=== PATIENT | female | born 1960 | race Caucasian/White ===

== ENCOUNTER 2020-06-23 01:39 | Emergency (ER) | payer OTHER, SELFPAY ==
[2020-06-23 01:45] VITALS: BP 169/79; PULSE 82; RESP 20; TEMP 36.4; O2SAT 96
--- NOTE | 2020-06-23 02:32 | ED.PSYCH ---
HPI - Psych General Chief Complaint: Psychiatric Symptoms Stated Complaint: mental health Time Seen by Provider: 06/23/20 01:57 Source: patient Mode of arrival: Ambulatory Limitations: no limitations History of Present Illness HPI Narrative: Patient is a 60-year-old female who presents with anxiety and paranoia. She actually was hospitalized 2 years ago for 10 days at the [facility] for severe paranoia thinking that someone was after her. She states that since the fall she has had some severe paranoia again. She stopped talking to friends she really felt like somebody named Scott was after her. She wrote herself an e-mail ?turning herself in she could not quite explain what this meant but she referred to it frequently. She says the last 2 weeks have been a little bit worse. [place] she says she was finally able to move and leave the house and came to the ER for help. She states that over the past few weeks she actually has been cleaning her house playing [facility] she showers daily she eats food. She has not been to the grocery store in weeks put her freezer is filled with [employer] food and she has many blessing jar is of food that she has been eating. Her brother is coming into town shortly she and her brother are clothes he knows about her history. She really would like to be started on antipsychotic and medication I have explained to her that this is not going happen in the emergency department. She [place] reached out to friends who she has not done so in long time. She feels like she cycles and may be bipolar. She was previously feeling is suicidal in the fall but has not had any suicidal ideations for some time. She denies any auditory or visual hallucinations. Onset (ago): month(s) Duration: constant History of same: Yes Related Data Allergies Allergy/AdvReac Type Severity Reaction Status Date / Time No Known Drug Allergies Allergy Verified 06/23/20 03:36 Review of Systems Review of Systems Narrative: GENERAL: Denies chills,fever HEENT: Denies throat pain RESPIRATORY: Denies dyspnea, cough, wheezing CARDIOVASCULAR: Denies chest pain, palpitations GASTROINTESTINAL: Denies nausea, vomiting MUSCULOSKELETAL: Denies extremity pain, injury SKIN: No rash, no laceration, no pruritus NEUROLOGIC: Denies weakness, dizziness, headache, numbness 8 point review of systems is negative except for those stated above and HPI Psychiatric Psychiatric: Reports as per HPI Patient History Social History Smoking Status: Never smoker Smoking Status: Never smoker Substance Use Type: does not use Exam Initial Vital Signs Initial Vital Signs: Vital Signs Temperature 97.6 F 06/23/20 01:45 Pulse Rate 82 06/23/20 01:45 Respiratory Rate 20 06/23/20 01:45 Blood Pressure 169/79 H 06/23/20 01:45 Pulse Oximetry 96 06/23/20 01:45 GENERAL: Well-appearing, well-nourished and in no acute distress. CARDIOVASCULAR: peripheral pulses in tact, cap refill <2 sec RESPIRATORY: No respiratory distress, speaks in full sentences without difficulty EXTREMITIES: Normal range of motion, no clubbing or edema. Neurovascularly intact NEUROLOGICAL: Cranial nerves II through XII grossly intact. Normal gait and speech. SKIN: Warm, dry, no petechiae, no rashes or lesions. Course Vital Signs Vital signs: Vital Signs - 8 hr 06/23/20 01:45 Temperature 97.6 F Pulse Rate 82 Respiratory Rate 20 Blood Pressure 169/79 H Pulse Oximetry 96 MDM - Psych MDM Narrative Medical decision making narrative: The patient does seem to be quite paranoid that somebody is after her. It was previously quite paralyzing. She now seems to actually be improving. She was able to call friends this evening she has been able to do daily living activities over the past few weeks she is eating and bathing herself. She does seem to have insight into her fear anxiety and paranoia. At this time she does not meet involuntary criteria. I discussed with her possible voluntary hospitalization which she declines at this time social work consult was offered as well. However she would like to go home she feels like she is able to reach out now she feels like her cycle is broken. She was able to come here tonight and she does not know why she did come in earlier. Discharge Plan Departure Patient Disposition: Home Clinical Impression: Acute anxiety Instructions: DI for Anxiety -- Adult Activity Restrictions/Additional Instructions: *You have been diagnosed with anxiety *What to do: It is strongly recommended that you start talking with his psychiatrist and is on medication. Please call them 1st thing in the morning If you are feeling suicidal or having suicidal thoughts: Call: Suicide Hotline: Visit: www.iamhurting.org Text: 069594 *Continue to take medications as directed *Follow up with your primary care provider in 2-3 days *Return to ER if you should have increasing anxiety, paranoia, suicidal ideations or any new, worsening or concerning symptoms Referrals: [facility] [Outside] Grover Mac MD [Physician] - Joe Barreto MD [Physician] - Brittany De Jesus DO [Physician] -
--- NOTE | 2020-06-23 04:30 | ED_ITS ---
HPI - Psych General Chief Complaint: Psychiatric Symptoms Stated Complaint: mental health Time Seen by Provider: 06/23/20 01:57 Source: patient Mode of arrival: Ambulatory Limitations: no limitations History of Present Illness HPI Narrative: Patient is a 60-year-old female who was discharged less than 30 minutes ago presenting again, please see my note. She has had severe anxiety and paranoia. She was offered to stay and talk to social Work earlier she did night at that time does not meet involuntary criteria. She decided she wanted to see meet with social work. She still states that she ?should have turned herself in earlier. Duration: constant Related Data Allergies Allergy/AdvReac Type Severity Reaction Status Date / Time No Known Drug Allergies Allergy Verified 06/23/20 03:36 Review of Systems Review of Systems Narrative: GENERAL: Denies chills,fever HEENT: Denies throat pain RESPIRATORY: Denies dyspnea, cough, wheezing CARDIOVASCULAR: Denies chest pain, palpitations GASTROINTESTINAL: Denies nausea, vomiting MUSCULOSKELETAL: Denies extremity pain, injury SKIN: No rash, no laceration, no pruritus NEUROLOGIC: Denies weakness, dizziness, headache, numbness 8 point review of systems is negative except for those stated above and HPI Psychiatric Psychiatric: Reports anxiety, Denies auditory hallucinations, Reports panic attacks and Denies tactile hallucinations Patient History Social History Smoking Status: Never smoker Smoking Status: Never smoker Substance Use Type: does not use Exam Initial Vital Signs Initial Vital Signs: Vital Signs Temperature 97.6 F 06/23/20 01:45 Pulse Rate 82 06/23/20 01:45 Respiratory Rate 20 06/23/20 01:45 Blood Pressure 169/79 H 06/23/20 01:45 Pulse Oximetry 96 06/23/20 01:45 GENERAL: Well-appearing, well-nourished and in no acute distress. CARDIOVASCULAR: peripheral pulses in tact, cap refill <2 sec RESPIRATORY: No respiratory distress, speaks in full sentences without difficulty EXTREMITIES: Normal range of motion, no clubbing or edema. Neurovascularly intact NEUROLOGICAL: Cranial nerves II through XII grossly intact. Normal gait and speech. SKIN: Warm, dry, no petechiae, no rashes or lesions. Course Vital Signs Vital signs: Vital Signs - 8 hr 06/23/20 01:45 Temperature 97.6 F Pulse Rate 82 Respiratory Rate 20 Blood Pressure 169/79 H Pulse Oximetry 96 MDM - Psych MDM Narrative Medical decision making narrative: 6:15 a.m. patient again is feeling pretty and able to be. She was offered Ativan she feels restless she has been on the phone with a friend. This time she feels like she can go home and set up an appointment with psychiatrist on her own without talking to social Work. She has good insight she has already returned once. The patient is clinically sober, free from distracting injury, appears to have intact insight, judgment and reason. Does not meet criteria for involuntary hospitalization. Patient has the capacity to make decisions. Discharge Plan Departure Patient Disposition: Home Clinical Impression: Acute anxiety Instructions: DI for Anxiety -- Adult Activity Restrictions/Additional Instructions: *You have been diagnosed with anxiety *What to do: It is strongly recommended that you start talking with his psychiatrist and is on medication. Please call them 1st thing in the morning If you are feeling suicidal or having suicidal thoughts: Call: Suicide Hotline: Visit: www.dentaZOOMing.org Text: 472462 *Continue to take medications as directed *Follow up with your primary care provider in 2-3 days *Return to ER if you should have increasing anxiety, paranoia, suicidal ideations or any new, worsening or concerning symptoms Referrals: [facility] [Outside] Grover Mac MD [Physician] - Joe Barreto MD [Physician] - Brittany De Jesus DO [Physician] -
== END 2020-06-23 02:35 | disposition home or self-care (01) ==
PROVIDERS: Emergency Provider Emergency Medicine
DX: F41.9 Anxiety disorder, unspecified (principal)
CPT/HCPCS: 99283

== ENCOUNTER 2020-06-23 03:22 | Emergency (ER) | payer OTHER, SELFPAY ==
[2020-06-23 03:31] VITALS: BP 133/88; PULSE 80; RESP 18; TEMP 36.6; O2SAT 96
[2020-06-23 03:57] LABS: Add Manual Diff / Slide Review NO; Basophils Absolute Auto 0 /uL (0-100); Basophils Percent Auto 0.5 % (0-2); Eosinophils Absolute Auto 100 /uL (0-450); Eosinophils Percent Auto 0.9 % (2-4); Hematocrit 44.2 % (36-46); Lymphocytes Absolute Auto 1500 /uL (1100-4500); Lymphocytes Percent Auto 18.1 % (25-40); Mean Corpuscular HGB Conc 33.8 % (30-36); Mean Corpuscular Hemoglobin 32.4 PG (26-34); Mean Corpuscular Volume 95.7 fL (80-100); Monocytes Absolute Auto 800 /uL (0-900); Monocytes Percent Auto 9.9 % (3-14); Neutrophils Absolute Auto 5800 /uL (1500-7000); Neutrophils Percent Auto 70.6 % (50-75); Platelet Count 241 X10^3/uL (150-400); Red Blood Cell Count 4.62 X10^6/uL (4.0-5.2); Red Cell Distribution Width 14.2 % (11.6-14.8); White Blood Cell Count 8.2 X10^3/uL (4.5-11.0)
[2020-06-23 04:05] LABS: Acetaminophen < 10 ug/mL (10-30); Alanine Aminotransferase 37 IU/L (<35); Albumin 4.4 g/dL (3.5-5.0); Albumin Globulin Ratio 1.7 (1.0-2.8); Alkaline Phosphatase 93 U/L (38-126); Aspartate Aminotransferase 35 IU/L (14-36); BUN Creatinine Ratio 19.6 (6-22); Bilirubin Total 0.4 mg/dL (0.2-1.3); Blood Urea Nitrogen 9 mg/dL (7-17); Calcium 9.6 mg/dL (8.4-10.2); Carbon Dioxide 32 mmol/L (22-32); Chloride 105 mmol/L (98-107); Estimated Glomerular Filt Rate > 60.0 mL/min (>60); Ethanol (ETOH) < 10 mg/dL; Globulin 2.6 g/dL (1.7-4.1); Glucose 107 mg/dL (70-100); HEMOLYSIS < 15 (0-50); Salicylate < 1.0 mg/dL (<20); Sodium 140 mmol/L (137-145)
--- NOTE | 2020-06-23 04:18 | PC.NURSE ---
She states she has isolated herself from family and friends and been at home,she has been eating and drinking liquids as her freezer has food in it she said.however,she recently contacted a brother in [place] who is coming to visit her soon.She is well dressed and has not been losing weight.
[2020-06-23 04:32] LABS: Free T4, Direct Thyroxine 1.38 ng/dL (0.78-2.19)
[2020-06-23 04:44] LABS: UR Morphine/Opiate cutoff 300 Negative (Negative); Ur Creatinine 50 (Normal); Ur Specific Gravity 1.025 (Normal); Urine Amphetamines Negative (Negative); Urine Barbiturates Negative (Negative); Urine Benzodiazepines Negative (Negative); Urine Cocaine Negative (Negative); Urine MDMA Negative (Negative); Urine Methadone Negative (Negative); Urine Methamphetamines Negative (Negative); Urine Oxycodone Negative (Negative); Urine Phencyclidine Negative (Negative); Urine Tetrahydrocannabinol Negative (Negative); Urine Tricyclic Antidepressant Negative (Negative); Urine pH 5 (Normal)
[2020-06-23 04:46] LABS: Thyroid Stimulating Hormone 3.39 uIU/mL (0.47-4.68)
--- NOTE | 2020-06-23 06:18 | PC.NURSE ---
She stated she was still anxious but had just talked by phone to a friend and wanted to go home.I notified DR Baires who spoke with her,I gave her a sandwich and she ate it. She denies any suicidal or homicidal thoughts.
[2020-06-23 06:35] VITALS: BP 141/77; PULSE 84; RESP 18; O2SAT 99
== END 2020-06-23 06:35 | disposition home or self-care (01) ==
PROVIDERS: Emergency Provider Emergency Medicine
DX: F41.9 Anxiety disorder, unspecified (principal)
CPT/HCPCS: 36415; 80053; 80305; 80320; 80329; 84439; 84443; 85025; 99281; 99283; G0480